=== PATIENT | female | born 1945 | race Caucasian/White ===

== ENCOUNTER 2024-07-01 21:22 | Emergency (ER) | payer MEDICARE ==
[2024-07-01 21:27] VITALS: TEMP 97.7
[2024-07-01] MEDS: PANTOPRAZOLE 40 MG/10 ML VIAL IVP STA (21:46)
[2024-07-01] MEDS: MORPHINE SULFATE 4 MG/ML SYRINGE IVP STA (21:47)
[2024-07-01] MEDS: ONDANSETRON 4 MG/2 ML VIAL IVP STA (21:47)
[2024-07-01] MEDS: SODIUM CHLORIDE 0.9% 1,000 ML IV ONE ×2 (21:47→22:48)
--- NOTE | 2024-07-01 21:48 | ED ---
General Adult HPI - General Chief complaint: Nausea/Vomiting/Diarrhea Stated complaint: Abd pain, post op Time Seen by Provider: 07/01/24 21:30 Source: patient, RN notes reviewed, old records reviewed Mode of arrival: wheelchair Limitations: no limitations - History of Present Illness Initial comments: Patient is an 78-year-old female who presents emergency department with severe abdominal pain. Patient had a robotic rectopexy for a prolapsed rectum on June 30, 2024 done from [facility], Dr. Kelly Mata. He ate breakfast and lunch at the hospital today and was discharged home this afternoon. Some mild gas passing but has not yet had a good bowel movement. Denies any vaginal discharge or bleeding. Denies any urinary complaints. Was discharged home with [place]. States that this evening the pain became worse. Did not eat dinner. Describes as severe cramping sensation along the lower abdomen. She has had nausea with nonbloody nonbilious emesis today. Denies any blood in it. Does have a history of atrial fibrillation on blood thinners. Presents for further evaluation at this time. - Related Data Allergies Allergy/AdvReac Type Severity Reaction Status Date / Time No Known Allergies Allergy Verified 07/01/24 21:27 Review of Systems ROS Statement: Those systems with pertinent positive or pertinent negative responses have been documented in the HPI. Review of Systems: CONST: Denies fever EYES: Denies blurry vision ENT: Denies nasal congestion C/V: Denies Chest pain RESP: Denies shortness of breath GI: Endorses abdominal cramping along the lower abdomen with nausea. : Denies dysuria SKIN: Denies rash. MSK: Denies joint pain. NEURO: Denies headache ROS Other: All systems not noted in ROS Statement are negative. Past Medical History Past Medical History: Atrial Fibrillation, Thyroid Disorder History of Any Multi-Drug Resistant Organisms: None Reported Past Surgical History: No Surgical Hx Reported Past Psychological History: No Psychological Hx Reported Smoking Status: Never smoker Past Alcohol Use History: None Reported Past Drug Use History: None Reported General Exam - General Exam Comments Initial Comments: General: Appears in moderate distress HEAD: Normal with no signs of head trauma. EYES: EOMI ENT: Hearing grossly intact, normal oropharynx. RESPIRATORY: Clear breath sounds bilaterally. No wheezes, rales, or rhonchi. C/V: Regular rate and rhythm. S1 and S2 auscultated, no edema, peripheral pulses 2+ and intact throughout ABD: Abdomen is soft, nondistended. Tender to palpation diffusely across the lower abdomen. Mild guarding. No rebound tenderness. No peritoneal signs. EXT: Normal range of motion, no obvious deformity SKIN: Surgical incisions appear clean. Glue still in place. NEURO: Alert and oriented x 4. Limitations: no limitations Course Vital Signs 07/01/24 07/01/24 07/01/24 21:23 21:48 22:11 Temperature 97.7 F Pulse Rate 67 64 64 Respiratory 18 24 22 Rate Blood Pressure 217/88 193/95 185/85 O2 Sat by Pulse 98 99 96 Oximetry 07/01/24 07/01/24 23:04 23:05 Temperature Pulse Rate 57 L Respiratory 18 Rate Blood Pressure 171/78 O2 Sat by Pulse 97 99 Oximetry Medical Decision Making - Medical Decision Making Was pt. sent in by a medical professional or institution (, PA, CASE FINISHER, urgent care, hospital, or snf...) When possible be specific @ -No Did you speak to anyone other than the patient for history (EMS, parent, family, police, friend...)? What history was obtained from this source @ -No Did you review nursing and triage notes (agree or disagree)? Why? @ -I reviewed and agree with nursing and triage notes Were old charts reviewed (outside hosp., previous admission, EMS record, old EKG, old radiological studies, urgent care reports/EKG's, snf records)? Report findings @ -No old charts were reviewed Differential Diagnosis (chest pain, altered mental status, abdominal pain women, abdominal pain men, vaginal bleeding, weakness, fever, dyspnea, syncope, headache, dizziness, GI bleed, back pain, seizure, CVA, palpatations, mental health, musculoskeletal)? @ -Differential Abdominal Pain Women: Appendicitis, Cholecystitis, diverticulosis, ischemic bowel, pancreatitis, hepatitis, UTI, gastroenteritis, AAA, incarcerated hernia, bowel obstruction, constipation, inflammatory bowel, hepatitis, peptic ulcer disease, splenic infarction, perforated viscus, vulvitis, ovarian torsion, PID, kidney stone, placenta abruption, this is not meant to be an all-inclusive list EKG interpreted by me (3pts min.). @ -As above X-rays interpreted by me (1pt min.). @ -None done CT interpreted by me (1pt min.). @ - CT imaging interpreted by myself as well as radiology, and Dr. Ortez did call me to let me know that he did see some intraperitoneal free air which is expected with the robotic surgery that she had. She also has sub cutaneous hair across her abdominal wall which she is also attributing likely to the robotic surgery. Believes that postsurgical ileus is possible at this time. Some nons pecific likely postoperative free fluid in the pelvis. No other obvious acute abnormalities present. U/S interpreted by me (1pt. min.). @ -None done What testing was considered but not performed or refused? (CT, X-rays, U/S, labs)? Why? @ -None What meds were considered but not given or refused? Why? @ -None Did you discuss the management of the patient with other professionals (professionals i.e. , PA, CASE FINISHER, lab, RT, psych nurse, manager social, fructose loader, teacher, ground defence officer, complex case manager)? Give summary @ -Spoke with radiologist Dr. Ortez who went over the imaging with me for more details regarding the recency of her surgery. I did contact the patient surgeon, Dr. Adolfo Hyatt from [facility] and we reviewed the patient's CT imaging and workup here today. Was agreed with plan for mikala maldonado. Did state that the cutaneous air and intraperitoneal air findings are expected for the patient. Was in agreement with plan for transfer. No further recommendations at this time. With the ER accepting physician, Dr. Carr who accepted the patient. Was smoking cessation discussed for >3mins.? @ -No Was critical care preformed (if so, how long)? @ -Yes, 32 minutes Were there social determinants of health that impacted care today? How? (Homelessness, low income, unemployed, alcoholism, drug addiction, transportation, low edu. Level, literacy, decrease access to med. care, detention, rehab)? @ -No Was there de-escalation of care discussed even if they declined (Discuss DNR or withdrawal of care, Hospice)? DNR status @ -No What co-morbidities impacted this encounter? (DM, HTN, Smoking, COPD, CAD, Cancer, CVA, ARF, Chemo, Hep., AIDS, mental health diagnosis, sleep apnea, morbid obesity)? @ -Postop day 1 from rectopexy for prolapsed rectum Was patient admitted / discharged? Hospital course, mention meds given and route, prescriptions, significant lab abnormalities, going to OR and other pertinent info. @ -Based on the patient's presentation and physical exam, presents emergency department postop day 1 from rectopexy for prolapsed rectum. He has diffuse lower abdominal pain. Patient be given IV fluids, nausea meds, Protonix, analgesia medications. Vitals remarkable for mild hypertension likely secondary to the diffuse pain. Primarily located across the lower abdomen. We will obtain CT abdomen pelvis as well as labs. She was in agreement this plan. EKG shows no signs of acute ischemia. Laboratory studies remarkable for leukocytosis of 11.38, likely reactive postop. Patient has a lactic acid of 5.1, which could be secondary to her recent multiple episodes of emesis and dehydration however cannot definitively rule out the possibility of it being secondary to postop infection. Patient initiated on Zosyn and blood cultures sent. Does not meet sepsis criteria. Remainder the labs unremarkable. CT abdomen pelvis shows possible postop ileus as well as postoperative findings of intraperitoneal free air that is mild as well as some subcutaneous air. On reevaluation, patient is still complaining of pain and is receiving her third dose of IV opiate medication. We will keep her n.p.o. for now. Suspect a postop ileus as the cause of her pain that she has not had much in terms of flatus or bowel movement since discharge earlier today. She will be transferred back to her surgical site, [facility] location. She was in agreement this plan. Patient administered a second IV fluid bolus as well as started on maintenance fluids. Patient be kept NPO. I did contact the patient surgeon, Dr. Adolfo Hyatt from [facility] and we reviewed the patient's CT imaging and workup here today. Was agreed with plan for transfer. Did state that the cutaneous air and intraperitoneal air findings are expected for the patient. Was in agreement with plan for transfer. No further recommendations at this time. With the ER accepting physician, Dr. Carr who accepted the patient. Undiagnosed new problem with uncertain prognosis? @ -No Drug Therapy requiring intensive monitoring for toxicity (Heparin, Nitro, Insulin, Cardizem)? @ -No Were any procedures done? @ -No Diagnosis/symptom? @ -Postop pain, postop ileus, dehydration Acute, or Chronic, or Acute on Chronic? @ -Acute Uncomplicated (without systemic symptoms) or Complicated (systemic symptoms)? @ -Complicated Side effects of treatment? @ -No Exacerbation, Progression, or Severe Exacerbation? @ -No Poses a threat to life or bodily function? How? (Chest pain, [place], [place], pneumonia, PE, COPD, DKA, ARF, appy, cholecystitis, CVA, Diverticulitis, Homicidal, Suicidal, threat to staff... and all critical care pts) @ -Potentially, yes - Lab Data Result diagrams: 07/01/24 21:48 07/01/24 21:48 Lab Results 07/01/24 07/01/24 07/01/24 Range/Units 21:48 21:48 21:48 WBC 11.38 H (4.50-10.00) 10*3/uL RBC 4.15 (4.10-5.20) 10*6/uL Hgb 12.8 (12.0-15.0) g/dL Hct 36.6 L (37.2-46.3) % MCV 88.2 (80.0-97.0) fL MCH 30.8 (27.0-32.0) pg MCHC 35.0 (32.0-37.0) g/dL Plt Count 175 (140-440) 10*3/uL MPV 10.8 (9.5-12.2) fL Immature Gran % (Auto) 0.4 % Neutrophils % 72.5 % Lymphocytes % 18.3 % Monocytes % 8.1 % Eosinophils % 0.5 % Basophils % 0.2 % Immature Gran # 0.04 (0.00-0.04) 10*3/uL Neutrophils # 8.26 H (1.80-7.70) 10*3/uL Lymphocytes # 2.08 (0.90-5.00) 10*3/uL Monocytes # 0.92 (0.20-1.00) 10*3/uL Eosinophils # 0.06 (0.04-0.35) 10*3/uL Basophils # 0.02 (0.00-0.10) 10*3/uL PT 11.6 (10.0-12.5) sec INR 1.1 (<1.2) APTT 20.7 L (22.0-30.0) sec Sodium 133 L (137-145) mmol/L Potassium 3.9 (3.5-5.1) mmol/L Chloride 98 (98-107) mmol/L Carbon Dioxide 19 L (22-30) mmol/L Anion Gap 16 mmol/L BUN 26 H (7-17) mg/dL Creatinine 0.86 (0.52-1.04) mg/dL Est GFR (CKD-EPI)AfAm 74 (>60 ml/min/1.73 sqM) Est GFR (CKD-EPI)NonAf 65 (>60 ml/min/1.73 sqM) Glucose 166 H (74-99) mg/dL Plasma Lactic Acid Tommie (0.7-2.0) mmol/L Calcium 9.5 (8.4-10.2) mg/dL Total Bilirubin 0.9 (0.2-1.3) mg/dL AST 113 H (14-36) U/L ALT 63 H (4-34) U/L Alkaline Phosphatase 82 (38-126) U/L Total Protein 7.2 (6.3-8.2) g/dL Albumin 4.6 (3.5-5.0) g/dL Amylase 79 (30-110) U/L Lipase 272 (23-300) U/L Blood Type Blood Type Confirm Blood Type Recheck Bld Type Recheck Status Antibody Screen Spec Expiration Date 07/01/24 07/01/24 07/01/24 Range/Units 21:48 21:49 21:56 WBC (4.50-10.00) 10*3/uL RBC (4.10-5.20) 10*6/uL Hgb (12.0-15.0) g/dL Hct (37.2-46.3) % MCV (80.0-97.0) fL MCH (27.0-32.0) pg MCHC (32.0-37.0) g/dL Plt Count (140-440) 10*3/uL MPV (9.5-12.2) fL Immature Gran % (Auto) % Neutrophils % % Lymphocytes % % Monocytes % % Eosinophils % % Basophils % % Immature Gran # (0.00-0.04) 10*3/uL Neutrophils # (1.80-7.70) 10*3/uL Lymphocytes # (0.90-5.00) 10*3/uL Monocytes # (0.20-1.00) 10*3/uL Eosinophils # (0.04-0.35) 10*3/uL Basophils # (0.00-0.10) 10*3/uL PT (10.0-12.5) sec INR (<1.2) APTT (22.0-30.0) sec Sodium (137-145) mmol/L Potassium (3.5-5.1) mmol/L Chloride (98-107) mmol/L Carbon Dioxide (22-30) mmol/L Anion Gap mmol/L BUN (7-17) mg/dL Creatinine (0.52-1.04) mg/dL Est GFR (CKD-EPI)AfAm (>60 ml/min/1.73 sqM) Est GFR (CKD-EPI)NonAf (>60 ml/min/1.73 sqM) Glucose (74-99) mg/dL Plasma Lactic Acid Tommie 5.1 H* (0.7-2.0) mmol/L Calcium (8.4-10.2) mg/dL Total Bilirubin (0.2-1.3) mg/dL AST (14-36) U/L ALT (4-34) U/L Alkaline Phosphatase (38-126) U/L Total Protein (6.3-8.2) g/dL Albumin (3.5-5.0) g/dL Amylase (30-110) U/L Lipase (23-300) U/L Blood Type B Positive Blood Type Confirm B Positive Blood Type Recheck No Previous Record Bld Type Recheck Status CABO Indicated Antibody Screen NEGATIVE Spec Expiration Date 07/04/20242348 - EKG Data -: EKG Interpreted by Me EKG Comments: 12-lead Electrocardiogram Interpretation Note EKG was reviewed and interpreted by myself. 12-lead ECG performed at 2136 is interpreted by me as revealing sinus bradycardia at a rate of 59 beats per minute. Ruby is normal. ME interval is 141 ms, QRS duration is 122 ms, QTc is 466 ms.. There were no ST or T wave abnormalities to suggest myocardial ischemia or injury. R wave progression across the precordium was delayed. By my interpretation this EKG is non-diagnostic for acute ischemia. Critical Care Time Critical Care Time: Yes Total Critical Care Time: 32 Disposition Clinical Impression: Post-op pain, Ileus, Dehydration Disposition: OTHER INSTITUTION NOT DEFINED Condition: Stable Referrals: None,Stated [REFERRING] - 1-2 days Time of Disposition: 23:29 - Out of Hospital Transfer - Req. Specs Out of Hospital Transfer - Requested Specifics: Other Emergency Center (Transferred to [facility] for continuity of care with her surgeon Dr. Adolfo Hyatt for postop pain and ileus)
[2024-07-01 22:00] LABS: Basophils # (A) 0.02 10*3/uL (0.00-0.10); Basophils % (A) 0.2 %; Eosinophils # (A) 0.06 10*3/uL (0.04-0.35); Eosinophils % (A) 0.5 %; HCT 36.6 % (37.2-46.3); HGB 12.8 g/dL (12.0-15.0); Lymphocytes # (A) 2.08 10*3/uL (0.90-5.00); Lymphocytes % (A) 18.3 %; MCH 30.8 pg (27.0-32.0); MCV 88.2 fL (80.0-97.0); Mean Platelet Volume 10.8 fL (9.5-12.2); Monocytes # (A) 0.92 10*3/uL (0.20-1.00); Monocytes % (A) 8.1 %; Neutrophils # (A) 8.26 10*3/uL (1.80-7.70); Neutrophils % (A) 72.5 %; Platelet Count 175 10*3/uL (140-440); RBC 4.15 10*6/uL (4.10-5.20); WBC 11.38 10*3/uL (4.50-10.00)
[2024-07-01] MEDS: HYDROmorphone 0.5 MG/0.5 ML SYRINGE IVP STA ×2 (22:05→23:59)
[2024-07-01] MEDS: SODIUM CHLORIDE 0.9% 1,000 ML IV STA (22:11)
[2024-07-01 22:16] LABS: ALT 63 U/L (4-34); AST 113 U/L (14-36); African American GFR (CKD) 74 (>60 ml/min/1.73 sqM); Albumin 4.6 g/dL (3.5-5.0); Alkaline Phosphatase 82 U/L (38-126); Amylase 79 U/L (30-110); Anion Gap 16 mmol/L; Blood Urea Nitrogen 26 mg/dL (7-17); Calcium 9.5 mg/dL (8.4-10.2); Carbon Dioxide 19 mmol/L (22-30); Chloride 98 mmol/L (98-107); Glucose 166 mg/dL (74-99); Lipase 272 U/L (23-300); Non-African American GFR(CKD) 65 (>60 ml/min/1.73 sqM); Potassium 3.9 mmol/L (3.5-5.1); Sodium 133 mmol/L (137-145); Total Bilirubin 0.9 mg/dL (0.2-1.3); Total Protein 7.2 g/dL (6.3-8.2)
[2024-07-01 22:28] LABS: INR 1.1 (<1.2); Prothrombin Time 11.6 sec (10.0-12.5)
[2024-07-01 22:32] LABS: Partial Thromboplastin Time 20.7 sec (22.0-30.0)
[2024-07-01] MEDS: PIPERACILLIN-TAZOBACTAM 3.375 GM in SODIUM CHLORIDE 0.9% 100 ML IVPB STA (22:48)
--- NOTE | 2024-07-01 22:57 | CT ---
EXAMINATION TYPE: CT abdomen pelvis w con DATE OF EXAM: 07/01/2024 10:39 PM COMPARISON: None. CLINICAL INDICATION: Female, 78 years old with history of abdominal pain, lower abd pain s/p surgery 07/01, PT HAD RECTOPEXY FOR PROLAPSED RECTUM ON 06/30/24. NAUSEA & VOMITING TECHNIQUE: Axial images were obtained from above the diaphragm to the pubic rami in the axial plane a t 5 mm thick sections. Reconstructed images are reviewed on the computer in the coronal plane. CONTRAST: 100 mL of Isovue 300. Study performed without Oral Contrast DLP: 598.2 mGycm, Automated exposure control for dose reduction was used. FINDINGS: There is extensive subcutaneous emphysema including along the left and right thorax, epigas tric region, the larger collections within the subcutaneous tissues of the anterior pelvis extending to the pubic symphysis and medial thigh regions. Free air is present within the abdomen. Patient has had recent robotic surgery for prolapse rectum. C orrelate with the timing of the surgery. Additional History is that the robotic surgery was yesterday and patient released today. Some free air is within the perineal region and perirectal region. Report was called and case discussed with emergency room physician by Dr. Ortez by telephone [phone] 07/01/2024. Limited CT sections are obtained the lung bases. The lung bases are clear. CT ABDOMEN: Liver: Normal Spleen: Normal Pancreas: Normal Adrenal glands: The adrenal glands are normal. Gallbladder: Normal Kidneys: No masses are evident. No hydronephrosis is present. No cysts are present. Delayed images were obtained through the kidneys, which remain unremarkable. Aorta: Vascular calcification is within the aorta. Inferior vena cava: Normal. CT PELVIS: Appears to be a small amount of fluid within the presacral space extending into the cul-de -sac greater than expected. This appears more fluidlike than hemorrhage. Sigmoid colon is not dilated but may be at the upper limits for normal. There is redundancy of the si gmoid colon. Descending colon is somewhat prominent. There are loops of bowel which are incompletely distended or lack oral contrast limiting their evaluation. Appendix: Not identified Urinary bladder: Normal. Genitourinary structures: Uterus appears normal. Adnexal regions are normal Osseous structures: No suspicious lytic or sclerotic lesions. IMPRESSION: 1. Intraperitoneal free air can be related to recent surgery. Monitoring and follow-up as clinically indicated can be performed. 2. Fairly extensive subcutaneous air is present extending from the thorax to the thighs. 3. Small amount of free fluid within the pelvis. 4. There may be some postsurgical ileus. No sonographic transition to suggest obstruction identified [facility], , 07/01/2024 10:55 PM
[2024-07-01 23:06] VITALS: RESP 18
[2024-07-01 23:27] LABS: Appearance,Urine Clear (Clear); Bilirubin,Urine Negative (Negative); Blood,Urine Trace (Negative); Color,Urine Colorless; Glucose,Urine (UA) 1+ (Negative); Leukocyte Esterase,Urine Negative (Negative); Nitrite,Urine Negative (Negative); Protein,Urine Negative (Negative); RBC,Urine <1 /hpf (0-5); Specific Gravity,Urine 1.019 (1.001-1.035); Squamous Epithelial Cell,Urine <1 /hpf (0-4); Urobilinogen,Urine <2.0 mg/dL (<2.0); WBC,Urine <1 /hpf (0-5)
[2024-07-02 00:15] LABS: Ketones,Urine 2+ (Negative)
[2024-07-02] MEDS: ONDANSETRON 4 MG/2 ML VIAL IVP STA (01:00)
[2024-07-02 01:03] VITALS: BP 171/84; PULSE 61
== END 2024-07-02 01:03 | disposition other institution (70) ==
LOC: EC 21:22
DX: K56.7 Ileus, unspecified (principal); G89.18 Other acute postprocedural pain; E86.0 Dehydration
CPT/HCPCS: 36415; 93005; 86900; 86901; 80053; 82150; 83605; 83690; 85025; 85610; 85730; 86850; 81001; 87040; 74177; 99291; 96365; 96375; 96361; 96376; J2543; J2270; J2405 ×2; J1171; Q9967; J2470